=== PATIENT | male | born 1955 | race Caucasian/White ===

== ENCOUNTER → 2017-06-29 | Outpatient (CLI) | payer OTHER ==
--- NOTE | 2017-06-30 09:29 | PCVCIMAG ---
APPROVED REPORT Study performed: 06/29/2017 08:32:02 EXAM: Comprehensive 2D, Doppler, and color-flow Echocardiogram Patient Location: Echo lab Status: routine BSA: 2.23 HR: 80 bpmBP: 104/70 mmHg Rhythm: NSR Other Information Study Quality: Technically Limited Indications Diabetes Dyspnea Hypertension/HDD Elevated Calcium Score. 2D Dimensions IVSd: 9.12 (7-11mm)LVOT Diam: 23.00 (18-24mm) LVDd: 40.01 mm PWd: 7.53 (7-11mm)Ascending Ao: 36.54 (22-36mm) LVDs: 31.29 (25-40mm) Left Atrium: 34.81 (27-40mm) Aortic Root: 31.00 mm LV Single Plane 4CH: 56.21 % LV Single Plane 2CH: 68.74 %Ambrose's LVEF: 62.47 % Biplane EF: 62.5 % Volumes Left Atrial Volume (Systole) Single Plane 4CH: 24.59 mLSingle Plane 2CH: 23.53 mL LA ESV Index: 12.00 mL/m2 Aortic Valve AoV Peak Reginald.: 1.59 m/s AO Peak Gr.: 10.14 mmHgLVOT Max P.70 mmHg LVOT Max V: 1.39 m/s CONSTANZA Vmax: 3.62 cm2 Mitral Valve E/A Ratio: 85.0 MV Decel. Time: 210.83 ms MV E Max Reginald.: 0.85 m/s MV A Reginald.: 0.01 m/s IVRT: 134.95 ms TDI E/Lateral E': 8.50E/Medial E': 8.50 Medial E' Reginald.: 0.10 m/s Lateral E' Reginald.: 0.10 m/s Pulmonary Vein P Vein S: 0.60 m/sP Vein A: 0.30 m/s P Vein D: 0.32 m/sP Vein A Dur.: 76.1 msec P Vein S/D Ratio: 1.88 Left Ventricle The left ventricle is normal size. There is normal LV segmental wall motion. There is normal left ventricular wall thickness. Left ventricular systolic function is normal. The left ventricular ejection fraction is within the normal range. LVEF is 55-60%. The left ventricular diastolic function is normal. Right Ventricle The right ventricle is normal size. The right ventricular systolic function is normal. Atria The left atrium size is normal. The right atrium size is normal. Aortic Valve The aortic valve is normal in structure. No aortic regurgitation is present. There is no aortic valvular stenosis. Mitral Valve The mitral valve is normal in structure. There is no mitral valve regurgitation noted. No evidence of mitral valve stenosis. Tricuspid Valve The tricuspid valve is normal in structure. There is no tricuspid valve regurgitation noted. Pulmonic Valve The pulmonary valve is normal in structure. There is no pulmonic valvular regurgitation. Great Vessels The aortic root is normal in size. IVC is normal in size and collapses with >50% inspiration Pericardium There is no pericardial effusion. <Conclusion> The left ventricle is normal size. LVEF is 55-60%. The aortic valve is normal in structure. The mitral valve is normal in structure. The tricuspid valve is normal in structure. The pulmonary valve is normal in structure. The aortic root is normal in size. There is no pericardial effusion.
--- NOTE | 2017-06-30 11:15 | PCVCIMAG ---
APPROVED REPORT Exam: Nuclear Stress Test Indication: CHEST PAIN, DYSPNEA, ELEVATED CALCIUM SCORE Patient Location: Out-Patient Stress Nurse: Asuncion Haddad RN, Kailey Lara RN GA Tech:Misa Madison [facility] Ht: 6 ft 3 in Wt: 204 lbs BSA: 2.21 m2 HR: 82 bpm BP: 138/81 mmHg BMI: 25.4 Rhythm: NSR Medical History Medical History: AGE,HYPERLIPIDEMIA,DM (INSULIN), FORMER TOBACCO USER Medications: ALBUTEROL,ATORASTATIN,HUMALOG,LANTUS, LISINOPRIL Allergies: NKA Pretest Chest Pain Characteristics: No chest pain Exercise History: Physically active NM EXAM: Myocardial Perfusion REST/STRESS Imaging Protocol: Rest Tc-99m/Stress Tc-99m 1 day Resting Data Rest SPECT myocardial perfusion imaging was performed in supine position 60 minutes following the intravenous injection of 9.1 mCi of Tc-99m Sestamibi. Time of rest injection: 0915 Date: 06/29/2017 Administration Route: IV Administration Site: Left AC Exercise Stress At peak stress, the patient was injected intravenously with 26.9mCi of Tc-99m Sestamibi. Time of stress injection: 1100 Date: 06/29/2017 Administration Route: IV Administration Site: Left AC Heart Rate at time of stress injection: 136 bpm. Patient continued to exercise for 1 minute(s). The images were gated to evaluate regional wall motion and calculate left ventricular ejection fraction. Perfusion There is a large area of severely reduced uptake in the entire segment of the inferior and apical wall which is seen on the stress images as well as the resting images. This area thickens and moves normally and is most consistent with attenuation artifact. Wall Motion Normal left ventricular wall motion. Nuclear Conclusion 1. Low risk study Interpreted by: Yaniv Cardenas MD Electronically Approved: 06/30/2017 10:04:50 Stress Test Details Stress Test: Exercise stress testing was performed using a Devendra protocol. HR Resting HR: 82 bpmMax Heart Rate (APMHR): 157 bpm Max HR Achieved: 148 bpmTarget HR (85% APMHR): 133 bpm % of APMHR: 94 Recovery HR: 103 bpm BP Resting BP: 138/81 mmHg Max BP: 188/89 mmHg BP response to stress: Normal blood pressure response to stress. ECG Resting ECG: Sinus Rhythm Stress ECG: Sinus Tachycardia ST Change: Horizontal ST depression Maximum ST Deviation: 1.4 mm Arrhythmia: VPC's Recovery ECG: SINUS TACHYCARDIA Recovery ST Change: None Clinical Reason for Termination: Dyspnea Stress Symptoms: DYSPNEA Exercise duration: 7 min 01 sec Exercise capacity: 8.4 METs Overall Exercise Capacity for Age: Poor Scale: Active Angina Score: Exercise-Limiting Injected at 6 minutes but pt could not tolerate furthur exercise at increased pace and elevation in stage 3. Manually lowered speed and incline to complete one minute post injection. Profound dyspnea, but denied CP. Symptoms resolved in recovery. Stress ECG Conclusion 1. Subjectively negative for ischemia 2. Electrocardiographically negative for ischemia 3. Insignificant ventricular couplet noted 4. Average functional capacity Norman Treadmill Score is -8.0 which is Moderate risk. <Conclusion> 1. Subjectively negative for ischemia 2. Electrocardiographically negative for ischemia 3. Insignificant ventricular couplet noted 4. Average functional capacity
== END | disposition home or self-care (01) ==
LOC: PCVCIMAG 08:24
PROVIDERS: ATTEND Internal Medicine
DX: E11.9 Type 2 diabetes mellitus without complications (principal); R07.9 Chest pain, unspecified; E83.59 Other disorders of calcium metabolism; E78.5 Hyperlipidemia, unspecified; R06.02 Shortness of breath; Z87.891 Personal history of nicotine dependence; Z79.4 Long term (current) use of insulin
CPT/HCPCS: 78452; 93017; 93306; A9500

== ENCOUNTER → 2018-11-01 | Outpatient (CLI) | payer OTHER ==
[~2018-11-01] MED LIST: REGADENOSON 0.4 MG/5 ML DISP.SYRIN. IV ONE
--- NOTE | 2018-11-02 11:03 | PCVCIMAG ---
APPROVED REPORT Study performed: 11/01/2018 11:39:05 EXAM: Comprehensive 2D, Doppler, and color-flow Echocardiogram Patient Location: Echo lab Room #: 2Status: routine BSA: 2.30 HR: 70 bpmBP: 116/78 mmHg Rhythm: NSR Other Information Study Quality: Fair Risk Factors: Cardiac Risk Factors: HTN, DM, Smoking Indications Dyspnea CAD Fatigue 2D Dimensions IVSd: 9.32 (7-11mm)LVOT Diam: 22.24 (18-24mm) LVDd: 42.30 mm PWd: 9.30 (7-11mm)Ascending Ao: 40.23 (22-36mm) LVDs: 26.17 (25-40mm) Left Atrium: 31.83 (27-40mm) Aortic Root: 32.33 mm LV Single Plane 4CH: 56.54 % LV Single Plane 2CH: 54.62 % Biplane EF: 52.5 % Volumes Left Atrial Volume (Systole) Single Plane 4CH: 35.33 mLSingle Plane 2CH: 24.43 mL Biplane LA Volume: 31.00 mLLA ESV Index: 13.00 mL/m2 Aortic Valve AoV Peak Reginald.: 1.41 m/s AO Peak Gr.: 7.99 mmHgLVOT Max P.59 mmHg LVOT Max V: 0.94 m/s CONSTANZA Vmax: 2.57 cm2 Mitral Valve E/A Ratio: 1.0 MV Decel. Time: 173.83 ms MV E Max Reginald.: 0.63 m/s MV A Reginald.: 0.66 m/s TDI E/Lateral E': 5.73E/Medial E': 9.00 Medial E' Reginald.: 0.07 m/s Lateral E' Reginald.: 0.11 m/s Pulmonary Valve PV Peak Reginald.: 0.93 m/sPV Peak Gr.: 3.46 mmHg Tricuspid Valve TV Vmax: 0.62 m/sPA Pressure: 13.00 mmHg Left Ventricle The left ventricle is normal size. There is normal LV segmental wall motion. There is normal left ventricular wall thickness. Left ventricular systolic function is low normal. LVEF is 50-55%. The left ventricular diastolic function is normal. Right Ventricle The right ventricle is normal size. The right ventricular systolic function is normal. Atria The left atrium size is normal. The right atrium size is normal. Aortic Valve Aortic valve is trileaflet. The aortic valve is normal in structure and function. No aortic regurgitation is present. There is no aortic valvular stenosis. Mitral Valve The mitral valve is normal in structure. There is no mitral valve regurgitation noted. No evidence of mitral valve stenosis. Tricuspid Valve The tricuspid valve is normal in structure. There is no tricuspid valve regurgitation noted. Pulmonic Valve The pulmonary valve is normal in structure. There is no pulmonic valvular regurgitation. Great Vessels The aortic root is normal in size. The ascending aorta is normal in size. Aortic arch is not well visualized. IVC is normal in size and collapses >50% with inspiration. Pericardium There is no pericardial effusion. There is no pleural effusion. <Conclusion> The left ventricle is normal size. LVEF is 50-55%. Aortic valve is trileaflet. The aortic valve is normal in structure and function. The mitral valve is normal in structure. The tricuspid valve is normal in structure. The pulmonary valve is normal in structure. There is no pericardial effusion. There is no pleural effusion.
--- NOTE | 2018-11-06 16:57 | PCVCIMAG ---
APPROVED REPORT Imaging Protocol: Rest Tc-99m/Stress Tc-99m 1 day Study performed: 11/01/2018 12:22:33 Indication: Dyspnea, Fatigue, High Ca Score Patient Location: Out-Patient Stress Nurse: Asuncion Haddad RN, Muriel Gibbons RN [place] Tech:Anum Greenwood [facility] Ht: 6 ft 4 in Wt: 218 lbs BSA: 2.30 m2 HR: 80 bpm BP: 161/82 mmHg BMI: 26.53 Rhythm: Sinus Rhythm Medical History Medical History: Hyperlipidemia, HTN, COPD, Diabetic Insulin, Current Smoker Medications: Albuterol, Atorvastatin, Humulog, Lisinopril, Metformin Allergies: No known drug allergies Cardiac Risk Factors: Age Pretest Chest Pain Characteristics: No chest pain Exercise History: Sedentary Physical Disabilities: lung status Resting Data Rest SPECT myocardial perfusion imaging was performed in supine position 45 minutes following the intravenous injection of 10.7 mCi of Tc-99m Sestamibi. Time of rest injection: 1230 Date: 11/01/2018 Administration Route: IV Administration Site: Right AC Pharmacologic Stress Pharmacologic stress test was performed by injecting Regadenoson 0.4 mg IV push over 10-15 seconds immediately followed by the intravenous injection of 34.2 mCi of Tc-99m Sestamibi. Time of stress injection: 1345 Date: 11/01/2018 Administration Route: IV Administration Site: Right AC Gated Stress SPECT was performed 45 minutes after stress injection. The images were gated to evaluate regional wall motion and calculate left ventricular ejection fraction. Stress Test Details Stress Test: Pharmacologic stress was paired with low level exercise. Reason for pharmacologic stress test: lung status. HRMax Heart Rate (APMHR): 156 bpm Resting HR: 80 bpmTarget HR (85% APMHR): 132 bpm Max HR Achieved: 114 bpm % of APMHR: 73 Recovery HR: 93 bpm BP Resting BP: 161/82 mmHg Max BP: 150/82 mmHg Recovery BP: 134/73 mmHg ECG Resting ECG: Sinus Rhythm Stress ECG: Sinus Tachycardia Arrhythmia: PVC's Recovery ECG: Sinus Rhythm Clinical Reason for Termination: Completed protocol Stress Symptoms: Dyspnea, Lightheaded Exercise duration: 4 min 00 sec Exercise capacity: 1.6 METs Symptoms resolved with caffeine. Stress ECG Conclusion 1. Adequate response to intravenous Lexiscan 2. Inadequate heart rate for ECG diagnosis Study Data Post stress, the left ventricular ejection was 72%.. SSS: 1 SRS: 0 SDS: 1 TID = 0.85. Perfusion There is a medium area of moderately reduced uptake in the mid and apical segment of the anterior wall which is seen on the stress images and improves on the resting images. This area thickens and moves normally and is most consistent with ischemia. Nuclear Conclusion ECG Findings: non-diagnostic Clinical Findings: negative for ischemia Nuclear Findings: positive for ischemia Exercise Capacity: not assessed Left Ventricular Function: normal 1. High risk study with evidence of inducible ischemia involving the anterior apical wall 2. Post exercise left ventricular ejection fraction of 72% was identified without wall motion abnormalities <Conclusion> 1. Adequate response to intravenous Lexiscan 2. Inadequate heart rate for ECG diagnosis
== END | disposition home or self-care (01) ==
LOC: PCVCIMAG 11:25
PROVIDERS: ATTEND Internal Medicine
DX: I25.10 Atherosclerotic heart disease of native coronary artery without angina pectoris (principal); R06.09 Other forms of dyspnea; R53.83 Other fatigue; R93.1 Abnormal findings on diagnostic imaging of heart and coronary circulation
CPT/HCPCS: 78452; 93017; 93306; A9500; J2785

== ENCOUNTER → 2019-05-31 | Outpatient (CLI) | payer OTHER ==
--- NOTE | 2019-05-31 10:57 | PCVCIMAG ---
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 Time: 265.51 ms MV E Max Reginald.: 0.88 m/s MV A Reginadl.: 0.80 m/s IVRT: 86.51 ms TDI E/Lateral E': 8.80E/Medial E': 14.67 Medial E' Reginald.: 0.06 m/s Lateral E' Reginald.: 0.10 m/s Pulmonary Valve PV Peak Reginald.: 1.03 m/sPV Peak Gr.: 4.20 mmHg Pulmonary Vein P Vein S: 0.86 m/sP Vein A: 0.53 m/s P Vein D: 0.64 m/sP Vein A Dur.: 107.3 msec P Vein S/D Ratio: 1.34 Tricuspid Valve RAP Estimate: 7.00 mmHg Left Ventricle The left ventricle is normal size. There is normal LV segmental wall motion. Borderline concentric left ventricular hypertrophy. Left ventricular systolic function is normal. The left ventricular ejection fraction is within the normal range. LVEF is 55%. Moderate diastolic dysfunction is present (pseudonormal filling). Right Ventricle The right ventricle is normal size. The right ventricular systolic function is normal. Atria The left atrium size is normal. The right atrium size is normal. Aortic Valve The aortic valve is normal in structure. No aortic regurgitation is present. There is no aortic valvular stenosis. Mitral Valve The mitral valve is normal in structure. Trace mitral regurgitation. No evidence of mitral valve stenosis. Tricuspid Valve The tricuspid valve is normal in structure. Trace tricuspid regurgitation. Unable to assess PA pressure. Pulmonic Valve The pulmonary valve is normal in structure. There is no pulmonic valvular regurgitation. Great Vessels The aortic root is normal in size. The ascending aorta is normal in size. IVC is normal in size and collapses >50% with inspiration. Pericardium There is no pericardial effusion. <Conclusion> The left ventricle is normal size. LVEF is 55%. The aortic valve is normal in structure. The mitral valve is normal in structure. Trace mitral regurgitation. The tricuspid valve is normal in structure. The pulmonary valve is normal in structure. There is no pericardial effusion.
== END | disposition home or self-care (01) ==
LOC: PCVCIMAG 09:23
PROVIDERS: ATTEND Internal Medicine
DX: I25.10 Atherosclerotic heart disease of native coronary artery without angina pectoris (principal); J44.9 Chronic obstructive pulmonary disease, unspecified; E78.5 Hyperlipidemia, unspecified; E11.9 Type 2 diabetes mellitus without complications; I10 Essential (primary) hypertension; K21.9 Gastro-esophageal reflux disease without esophagitis; F17.210 Nicotine dependence, cigarettes, uncomplicated; Z95.1 Presence of aortocoronary bypass graft; Z82.49 Family history of ischemic heart disease and other diseases of the circulatory system
CPT/HCPCS: 93306